=== PATIENT | male | born 1995 | race Caucasian/White ===

== ENCOUNTER 2018-07-29 01:58 | Emergency (ER) | payer BC, MEDICAID ==
[2018-07-29 02:05] VITALS: BP 148/81
== END 2018-07-29 02:45 | disposition left against medical advice (07) ==
DX: R55 Syncope and collapse (principal)

== ENCOUNTER 2018-09-05 19:01 | Emergency (ER) | payer MEDICAID ==
[2018-09-05] MEDS ORDERED: MAG HYDROX/AL HYDROX/SIMETH 30 ML UDCUP PO ONE (19:31)
[2018-09-05] MEDS ORDERED: HYOSCYAMINE SULFATE 0.125 MG TAB PO ONE (19:31)
[2018-09-05] MEDS ORDERED: LIDOCAINE 2% VISCOUS 15 ML UDCUP PO ONE (19:31)
--- NOTE | 2018-09-05 19:35 | EDPHY ---
H & P Stated Complaint: upper abd pain- sent by Time Seen by Provider: 09/05/18 19:16 HPI/ROS: CHIEF COMPLAINT: Epigastric pain HISTORY OF PRESENT ILLNESS: 23-year-old male presents with epigastric pain. Heavy alcohol intake 6 days ago, followed by repeated vomiting the next morning. 5 day h/o intermittent epigastric and LUQ pain. The pain is mild and does not change with eating. Able to ignore the pain and do his usual activities. No associated symptoms. He was seen in urgent care just prior to arrival. He was told to come to the emergency department to get his pancreas checked. No prior history of pancreatitis, PUD or liver disease. REVIEW OF SYSTEMS: complete 10 point ROS reviewed and is negative except for the noted elements in the HPI Source: Patient - Personal History Current Tetanus Diphtheria and Acellular Pertussis (TDAP): Unsure - Medical/Surgical History Hx Asthma: No Hx Chronic Respiratory Disease: No Hx Diabetes: No Hx Cardiac Disease: No Hx Renal Disease: No Hx Cirrhosis: No Hx Alcoholism: No Hx HIV/AIDS: No Hx Splenectomy or Spleen Trauma: No Other PMH: denies - Social History Smoking Status: Never smoked Alcohol Use: Heavy Drug Use: Cocaine (quit months ago) - Physical Exam Exam: General Appearance: Alert, pleasant Eyes: Pupils equal and round, no conjunctival pallor or injection ENT, Mouth: Mucous membranes moist Neck: Normal inspection Respiratory: Lungs are clear to auscultation Cardiovascular: Regular rate and rhythm Gastrointestinal: Abdomen is soft, epigastric tenderness Neurological: A&O, nonfocal, normal gait Skin: Warm and dry, no rash Extremities: Nontender, no pedal edema Psychiatric: Mood and affect normal Constitutional: Initial Vital Signs Temperature (C) 36.6 C 09/05/18 19:06 Heart Rate 75 09/05/18 19:06 Respiratory Rate 20 09/05/18 19:06 Blood Pressure 137/78 H 09/05/18 19:06 O2 Sat (%) 98 09/05/18 19:06 O2 Delivery Mode Room Air Allergies/Adverse Reactions: ceftriaxone Allergy (Mild, Verified 09/05/18 19:06) Home Medications: Medication Instructions Recorded NK [No Known Home Meds] 09/05/18 Medical Decision Making ED Course/Re-evaluation: This patient presents with epigastric pain, most likely secondary to acute gastritis. Laboratory tests obtained to rule out pancreatitis or other etiology. GI cocktail given with some relief in discomfort. Blood test results discussed with the patient. No evidence of pancreatitis or acute hepatitis. Abdomen is soft, minimal epigastric tenderness. Will discharge home. Gastritis and dietary instructions given. Differential Diagnosis: Differential diagnosis includes though it is not limited to appendicitis, cholecystitis, diverticulitis, pyelonephritis, bowel perforation, small bowel obstruction. - Data Points Laboratory Results: Laboratory Results 09/05/18 19:35 09/05/18 19:35 Medications Given: Discontinued Medications Al Hydroxide/Mg Hydroxide (Maalox Susp) 30 ml PO ONCE ONE Stop: 09/05/18 19:32 Last Admin: 09/05/18 19:39 Dose: 30 ml Hyoscyamine Sulfate (Levsin, Hyomax-Sl) 0.25 mg PO ONCE ONE Stop: 09/05/18 19:32 Last Admin: 09/05/18 19:39 Dose: 0.25 mg Lidocaine (Lidocaine 2% Viscous) 15 ml PO ONCE ONE Stop: 09/05/18 19:32 Last Admin: 09/05/18 19:39 Dose: 15 ml Departure - Departure Disposition: Home, Routine, Self-Care Clinical Impression: Acute gastritis Qualifiers: Gastritis type: alcoholic Gastritis bleeding: without bleeding Qualified Code(s ): K29.20 - Alcoholic gastritis without bleeding Condition: Good Instructions: Gastritis (ED), Diet for Stomach Ulcers and Gastritis (ED) Additional Instructions: Your blood tests are normal today. You do not have pancreatitis. Take Mylanta prior to meals and at bedtime. Take Pepcid or Zantac as directed on the packaging. Avoid spicy and fatty foods. Return for worsening symptoms or any concerns. Referrals: Jeimy Sanderson MD [Medical Doctor] - As per Instructions (Call to make an appointment.)
[2018-09-05 19:42] LABS: PLATELET COUNT 229 10^3/uL (150-400)
[2018-09-05 20:28] VITALS: BP 134/73
== END 2018-09-05 21:05 | disposition home or self-care (01) ==
DX: K29.20 Alcoholic gastritis without bleeding (principal)